=== PATIENT | male | born 1960 | race Caucasian/White ===

== ENCOUNTER → 2019-12-30 01:53 | Outpatient (CLI) | payer BC, SELFPAY ==
--- NOTE | 2019-12-30 09:00 | ETT_ITS ---
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 Medical History Medical History: CAD s/p stent Cardiac Medications: Atorvastatin. Aspirin. Famotidine., Allergies: No known drug allergies Cardiac Risk Factors: Hyperlipidemia, FHX of CAD, Smoking Previous Cardiac Procedures: PCI Pretest Chest Pain Characteristics: No chest pain Exercise History: Physically active Lung Sounds: Clear to auscultation Heart Sounds: Regular Stress Test Details Test: Exercise stress testing was performed using a Keagan protocol. Rest Stress HR Resting HR Supine: 60 bpm Max Heart Rate (APMHR): 160 bpm Resting HR Standin bpm Target HR (85% APMHR): 136 bpm Max HR Achieved: 150 bpm % of APMHR: 93 HR response to stress: Normal HR response to stress BP Resting BP Supine: 134/80 mmHg Resting BP Standin/80 mmHg Max BP: 165/70 mmHg Recovery BP: 132/66 mmHg BP response to stress: Normal blood pressure response to stress. ECG Resting ECG: LAFB Stress ECG: Sinus Tachycardia, LAFB ST Change: No significant ST segment changes Arrhythmia: None Recovery ECG: LAFB Recovery ST Change: No significant ST segment changes Recovery Arrhythmia: None Clinical Reason for Termination: Fatigue Stress Symptoms: General Fatigue Exercise duration: 8 min48 sec Highest Stage Reached: Stage 2: 2.5 mph at 12% grade. Exercise capacity: 10.16 METs Functional Capacity: Average Capacity Stress ECG Conclusion 1. Patient exercised for 8 minutes and 48 seconds (10 METS). Rate-pressure product was 22,000. 2. The patient had no symptoms suggestive of ischemia. 3. There is no evidence of ischemia on the ECG during this level of stress. 4. The Bloom Score ( 8) estimates an annual cardiovascular mortality of 0% and a five year survival of 95%. Using the Bloom Score there is a low probability of any angiographic coronary disease. Protocol Used: Keagan Protocol Stress Test Summary STAGE Time (mins) Speed (mph) Grade (%) HR BP SYMPTOMS METS Supine 60 134/80 Standing 66 126/80 1 3 1.7 10 99 134/76 4.6 2 6 2.5 12 120 140/80 7 3 9 3.4 14 150 160/85 10.2 1 min recovery 108 165/70 3 min recovery 86 162/70 6 min recovery 82 132/66
== END ==
PROVIDERS: PCP Internal Medicine Cardiovascular Disease; Visit Provider Internal Medicine Cardiovascular Disease
DX: I25.10 Atherosclerotic heart disease of native coronary artery without angina pectoris (principal); Z95.5 Presence of coronary angioplasty implant and graft; F17.200 Nicotine dependence, unspecified, uncomplicated; E78.5 Hyperlipidemia, unspecified; Z82.49 Family history of ischemic heart disease and other diseases of the circulatory system; Z02.79 Encounter for issue of other medical certificate
CPT/HCPCS: 93017